=== PATIENT | female | born 1980 | race African-American/Black ===

== ENCOUNTER 2018-01-23 16:30 | Emergency (ER) | END 2018-01-23 21:12 | disposition left against medical advice (07) ==

== ENCOUNTER 2019-06-19 21:25 | Emergency (ER) | payer SELFPAY ==
[~2019-06-19] VITALS: Ht 165.1 cm; Wt 58.5 kg
[~2019-06-19 21:25] MED LIST: ALBU18HF INHALATION; ALPR0.5T6 PO; BENADRYL; CIPR500T4 PO; DIPH25CA6 PO; HYDR-842 PO; IBUP-1542 PO; NITR-58 PO; ONDA4TAB14 PO; PRED10TA PO; PREDNISONE PO; SULF1TAB31 PO; TRAM50TA2 PO
[2019-06-19 21:28] VITALS: Ht 165.1 cm; Wt 58.5 kg
[2019-06-19] MEDS ORDERED: ONDANSETRON 4 MG INJ IV STA (22:29)
[2019-06-19] MEDS ORDERED: morphine 4 MG/ML VIAL IV STA (22:29)
[2019-06-19] MEDS ORDERED: SOD CHLORIDE 0.9% 1,000 ML IV STA (22:29)
--- NOTE | 2019-06-20 00:33 | ERD ---
ER Documentation Chief Complaint Chief Complaint PT reports RLQ pain with BATES an nausea since last night HPI This is a 38-year-old female reports the right lower quadrant pain with headache and nausea since last night. He denies fevers or chills. Denies any other current complaints. Pain is mild to moderate intensity with radiation to the flank. No fevers or chills. No other current issues ROS All systems reviewed and are negative except as per history of present illness. Medications Home Meds Reported Medications Albuterol Sulfate* (Ventolin HFA*) 18 Gm Hfa.aer.ad, 2 PUFF INHALATION Q4H, #1 INHALER 06/19/19 Prednisone* (Prednisone*) 10 Mg Tab, 10 MG PO QAM, TAB 06/19/19 Alprazolam* (Alprazolam*) 0.5 Mg Tablet, 0.5 MG PO Q8H PRN for ANXIETY, TAB 12/21/15 Diphenhydramine Hcl* (Diphenhydramine Hcl*) 25 Mg Capsule, 50 MG PO DAILY PRN for ITCHING, CAP 12/21/15 Discontinued Reported Medications Hydroxyzine Hcl* (Atarax*) 25 Mg Tab, 25 MG PO Q6H PRN for ITCHING, TAB 12/21/15 [Benadryl] No Conflict Check, PRN for ALLERGY 01/24/14 [Prednisone] No Conflict Check, 5 MG PO DAILY 01/24/14 Discontinued Scripts Ibuprofen* (Motrin*) 600 Mg Tab, 600 MG PO Q6H PRN for PAIN, #20 TAB Prov:MEJIA CASTELLANOS MD 01/23/18 Allergies Allergies: Coded Allergies: Milk Containing Products (Verified Allergy, Severe, mouth/tongue swells and ears become itchy, 07/19/13) hydrocodone (Verified Allergy, Severe, DIFFICULTY BREATHING, MOUTH SWOLLEN,HALLUCINATION, 07/11/13) Metronidazole HCl (Verified Allergy, Unknown, RASH, VOMITTING, 12/21/15) Soy (Verified Allergy, Unknown, GEN BODY PAIN, RASH, 12/21/15) amoxicillin (Verified Allergy, Unknown, HIVES, NAUSEA, VOMITING, DIARRHEA, 12/21/15) cephalexin (Verified Allergy, Unknown, HIVES, NAUSEA, VOMITING, DIARRHEA, 12/21/15) clindamycin (Verified Allergy, Unknown, RASH, 12/21/15) corn (Verified Allergy, Unknown, RASH, GEN BODY PAIN, 12/21/15) dextrose (Verified Allergy, Unknown, ANAPHYLACTIC SHOCK, 12/21/15) metronidazole (Verified Allergy, Unknown, RASH, VOMITTING, 12/21/15) vancomycin (Verified Allergy, Unknown, URTICARIAL RASH, 12/21/15) walnut (Verified Allergy, Unknown, HIVES, NAUSEA, VOMITING, DIARRHEA, 12/21/15) PMhx/Soc History of Surgery: Yes (BTL) Anesthesia Reaction: No Hx Neurological Disorder: No Hx Respiratory Disorders: No Hx Cardiac Disorders: No Hx Psychiatric Problems: No Hx Miscellaneous Medical Probl: Yes (sjogren's,LUPUS) Hx Alcohol Use: Yes (OCCASIONAL) Hx Substance Use: No Hx Tobacco Use: No Smoking Status: Never smoker Physical Exam Vitals Vital Signs Date Temp Pulse Resp B/P (MAP) Pulse Ox O2 O2 Flow FiO2 Time Delivery Rate 06/19/19 98.3 109 20 127/65 98 21:28 (85) Physical Exam Const: No acute distress Head: Atraumatic Eyes: Normal Conjunctiva ENT: Normal External Ears, Nose and Mouth. Neck: Full range of motion. No meningismus. Resp: Clear to auscultation bilaterally Cardio: Regular rate and rhythm, no murmurs Abd: Soft, non tender, non distended. Normal bowel sounds Skin: No petechiae or rashes Back: No midline or flank tenderness Ext: No cyanosis, or edema Neur: Awake and alert Psych: Normal Mood and Affect Result Diagram: 06/19/19224806/19/192248 Results 24 hrs Laboratory Tests Test 06/19/19 22:49 06/19/19 22:50 06/19/19 23:05 White Blood Count 12.2 10^3/ul Red Blood Count 4.56 10^6/ul Hemoglobin 12.0 g/dl Hematocrit 39.2 % Mean Corpuscular Volume 86.0 fl Mean Corpuscular Hemoglobin 26.3 pg Mean Corpuscular 30.6 g/dl Hemoglobin Concent Red Cell Distribution Width 14.6 % Platelet Count 270 10^3/UL Mean Platelet Volume 9.9 fl Immature Granulocytes % 0.400 % Neutrophils % 82.4 % Lymphocytes % 13.4 % Monocytes % 3.2 % Eosinophils % 0.1 % Basophils % 0.5 % Nucleated Red Blood Cells % 0.0 /100WBC Immature Granulocytes # 0.050 10^3/ul Neutrophils # 10.1 10^3/ul Lymphocytes # 1.6 10^3/ul Monocytes # 0.4 10^3/ul Eosinophils # 0.0 10^3/ul Basophils # 0.1 10^3/ul Nucleated Red Blood Cells # 0.0 10^3/ul Sodium Level 141 mmol/L Potassium Level 4.1 mmol/L Chloride Level 105 mmol/L Carbon Dioxide Level 27 mmol/L Anion Gap 9 Blood Urea Nitrogen 9 mg/dl Creatinine 0.62 mg/dl Est Glomerular Filtrat > 60 mL/min Rate mL/min Glucose Level 109 mg/dl Calcium Level 9.6 mg/dl Total Bilirubin 0.4 mg/dl Direct Bilirubin 0.00 mg/dl Indirect Bilirubin 0.4 mg/dl Aspartate Amino Transf (AST/SGOT) 30 IU/L Alanine 20 IU/L Aminotransferase (ALT/SGPT) Alkaline Phosphatase 67 IU/L Total Protein 8.3 g/dl Albumin 4.3 g/dl Globulin 4.00 g/dl Albumin/Globulin Ratio 1.07 Lipase 77 U/L Urine Color STRAW Urine Clarity CLEAR Urine pH 9.0 Urine Specific [place] 1.006 Urine Ketones NEGATIVE mg/dL Urine Nitrite NEGATIVE mg/dL Urine Bilirubin NEGATIVE mg/dL Urine Urobilinogen NEGATIVE mg/dL Urine Leukocyte Esterase 1+ Haily/ul Urine Microscopic RBC 2 /HPF Urine Microscopic WBC 12 /HPF Urine Bacteria FEW /HPF Urine Hemoglobin 1+ mg/dL Urine Glucose NEGATIVE mg/dL Urine Total Protein NEGATIVE mg/dl POC Beta HCG, Qualitative NEGATIVE Current Medications Medications Dose Sig/Marquis Start Time Status Last (Trade) Ordered Route PRN Stop Time Admin Dose Reason Admin Sodium 1,000 ml @ Q1H STAT 06/19/19 DC 06/19/19 Chloride 1,000 mls/hr IV 22:29 06/19/19 22:47 23:28 Morphine 4 mg ONCE STAT 06/19/19 DC 06/19/19 Sulfate IV 22:29 06/19/19 22:47 (morphine) 22:30 Ondansetron 4 mg ONCE STAT 06/19/19 DC 06/19/19 HCl (Zofran IV 22:29 06/19/19 22:47 Inj) 22:30 Procedures/MDM Medical decision making: This is a very pleasant 38-year female with flank pain. CT is negative. She does have evidence of UTI. Abdomen is nonsurgical. Pain is relieved. Patient will be discharged home with Bactrim and tramadol for pain. She is been advised to follow-up with primary care physician. Return for worsening symptoms. Departure Diagnosis: Primary Impression: Abdominal pain Abdominal location: unspecified location Qualified Codes: R10.9 - Unspecified abdominal pain Condition: Stable REX PAGE Jun 20, 2019 00:33
[2019-06-20] MEDS ORDERED: KETOROLAC 30 MG INJ IV STA (00:43)
[2019-06-20 01:10] VITALS: BP 113/69; PULSE 95; RESP 19
== END 2019-06-20 01:12 | disposition home or self-care (01) ==
LOC: E/R 21:25
DX: R10.31 Right lower quadrant pain (principal)
CPT/HCPCS: 36415; 74176; 80053; 81001; 81025; 83690; 85025; 96374; 96375; 99285; J1885; J2270; J2405; J7030

== ENCOUNTER 2019-06-25 11:27 | Emergency (ER) | payer SELFPAY ==
[~2019-06-25] VITALS: Ht 162.6 cm; Wt 68.0 kg
[~2019-06-25 11:27] MED LIST changes: -BENADRYL; -HYDR-842 PO; -IBUP-1542 PO; -PREDNISONE PO
[2019-06-25 11:32] VITALS: Ht 162.6 cm; Wt 68.0 kg
[2019-06-25 15:00] VITALS: BP 90/51; PULSE 90; RESP 18
== END 2019-06-25 15:01 | disposition home or self-care (01) ==
LOC: FTE 11:27
DX: N39.0 Urinary tract infection, site not specified (principal); R10.2 Pelvic and perineal pain
CPT/HCPCS: 74176; 80053; 81001; 81025; 83690; 85025; 85610; 85730; 87086; J1200; J1885; J2405; J7030; 36415; 96374; 96375

== ENCOUNTER 2019-06-26 15:23 | Emergency (ER) | payer SELFPAY ==
[~2019-06-26] VITALS: Ht 166.4 cm; Wt 57.8 kg
[2019-06-26 15:28] VITALS: BP 127/70; PULSE 102; RESP 16; Ht 166.4 cm; Wt 57.8 kg
[2019-06-26] MEDS ORDERED: NITROFURANTOIN (SR) 100 MG CAP PO ONE (17:00)
[2019-06-26] MEDS ORDERED: DEXAMETHASONE 10 MG/ML 1 ML INJ IM ONE (18:30)
== END 2019-06-26 19:33 | disposition home or self-care (01) ==
LOC: FTE 15:23
DX: N39.0 Urinary tract infection, site not specified (principal)
CPT/HCPCS: 81001; 99283; J1100